=== PATIENT | female | born 1970 | race Caucasian/White ===

== ENCOUNTER 2017-08-23 09:37 | Emergency (ER) | payer MEDICAID ==
[2017-08-23 09:37] VITALS: BMI 23.0
[2017-08-23 09:50] VITALS: BP 120/72; PULSE 91; RESP 20; TEMP 97.8; O2SAT 97
[2017-08-23] MEDS ORDERED: Sodium Chloride 0.9% 1,000 ML IV STA (10:54)
--- NOTE | 2017-08-23 11:29 | ED PDOC ---
HPI:Nausea, Vomiting, Diarrhea Time Seen by Provider: 08/23/17 10:17 Chief Complaint (Nursing): Abdominal Pain Chief Complaint (Provider): Vomiting/diarrhea History Per: Patient History/Exam Limitations: no limitations Onset/Duration Of Symptoms: Days (2) Additional Complaint(s): Pt states she went out to eat last night, at 11 PM started to have nausea, vomiting, diarrhea and crampy abdominal pain. Denies fever, dysuria, hematuria , vaginal bleeding. Past Medical History Reviewed: Nursing Documentation, Vital Signs Vital Signs: Last Vital Signs Temp 97.8 F 08/23/17 09:49 Pulse 91 H 08/23/17 09:49 Resp 20 08/23/17 09:49 BP 120/72 08/23/17 09:49 Pulse Ox 97 08/23/17 09:49 - Medical History PMH: Asthma, Bipolar Disorder, Depression, Hyperthyroidism Denies: Diabetes, Hepatitis, HIV, HTN, Seizures, Sexually Transmitted Disease - Surgical History Surgical History: No Surg Hx - Family History Family History: States: Unknown Family Hx - Social History Current smoker - smoking cessation education provided: Yes - Immunization History Hx Tetanus Toxoid Vaccination: No Hx Influenza Vaccination: No Hx Pneumococcal Vaccination: No - Home Medications Home Medications: Ambulatory Orders Medication Instructions Recorded Gabapentin [Neurontin] 100 mg PO TID 15 Days #45 cap 05/12/17 hydrOXYzine HCl [Atarax] 25 mg PO TID PRN 30 Days #45 tab 05/12/17 traZODone [Desyrel] 50 mg PO HS PRN 15 Days #15 tab 05/12/17 Nitrofurantoin Macrocrystals 100 mg PO BID #13 cap 08/23/17 [Macrobid] - Allergies Allergies/Adverse Reactions: Allergies Allergy/AdvReac Type Severity Reaction Status Date / Time No Known Allergies Allergy Verified 05/09/17 18:21 Review of Systems Constitutional: Negative for: Fever, Chills Cardiovascular: Negative for: Chest Pain, Palpitations Respiratory: Negative for: Cough, Shortness of Breath Gastrointestinal: Positive for: Nausea, Vomiting, Abdominal Pain, Diarrhea. Negative for: Hematochezia, Hematemesis Genitourinary Female: Negative for: Dysuria, Hematuria, Vaginal Discharge, Vaginal Bleeding Musculoskeletal: Negative for: Back Pain Skin: Negative for: Rash, Lesions Neurological: Negative for: Headache Physical Exam - Reviewed Nursing Documentation Reviewed: Yes Vital Signs Reviewed: Yes - Physical Exam Appears: Positive for: Well, No Acute Distress Head Exam: Positive for: ATRAUMATIC, NORMAL INSPECTION Skin: Positive for: Normal Color, Warm, Dry Eye Exam: Positive for: Normal appearance, EOMI, PERRL Cardiovascular/Chest: Positive for: Regular Rate, Rhythm Respiratory: Positive for: Normal Breath Sounds Gastrointestinal/Abdominal: Positive for: Bowel Sounds, Soft, Tenderness (BUQ/ epigastric). Negative for: Distended, Guarding, Rebound Back: Positive for: Normal Inspection. Negative for: L CVA Tenderness, R CVA Tenderness Extremity: Positive for: Normal ROM Neurologic/Psych: Positive for: Alert, Oriented - Laboratory Results Result Diagrams: 08/23/17 11:01 08/23/17 11:01 - ECG O2 Sat by Pulse Oximetry: 97 Medical Decision Making Medical Decision Makin yo female with vomiting, diarrhea and abdominal pain. - labs - abdominal ultrasound - IVF - Zofran ODT Disposition - Clinical Impression Clinical Impression: Gastroenteritis, UTI (urinary tract infection) - Disposition Disposition: Eloped Disposition Time: 13:06 Condition: UNKNOWN Prescriptions: Nitrofurantoin Macrocrystals [Macrobid] 100 mg PO BID #13 cap Forms: [facility] ([place])
[2017-08-23 11:33] LABS: BASO % 0.4 % (0.0-2.0); EOS # 0.1 K/uL (0.0-0.7); EOS % 0.8 % (0.0-4.0); LYMPH # 0.8 K/uL (1.0-4.3); LYMPH % 11.3 % (20.0-40.0); MEAN CELL VOLUME 91.5 fl (81.0-99.0); MEAN CORPUSCULAR HEMOGLOBIN 31.7 pg (27.0-31.0); MEAN CORPUSCULAR HGB CONC 34.7 g/dL (33.0-37.0); MEAN PLATELET VOLUME 8.6 fl (7.2-11.7); MONO # 0.3 K/uL (0.0-0.8); MONO % 3.9 % (0.0-10.0); NEUT # 6.3 K/uL (1.8-7.0); NEUT % 83.6 % (50.0-75.0); RBC 4.73 Mil/uL (3.80-5.20); RED CELL DISTRIBUTION WIDTH 12.2 % (11.5-14.5); WHITE BLOOD COUNT 7.5 K/uL (4.8-10.8)
[2017-08-23 11:41] LABS: ALB/GLOB RATIO 0.9 (1.0-2.1); ALBUMIN 4.4 g/dL (3.5-5.0); ALT/SGPT 38 U/L (9-52); AST/SGOT 36 U/L (14-36); BLOOD UREA NITROGEN 16 mg/dl (7-17); CALCIUM 9.2 mg/dL (8.4-10.2); GFR AFRICAN-AMERICAN > 60; GFR NON-AFRICAN AMERICAN > 60; LIPASE 23 U/L (23-300)
[2017-08-23 11:55] LABS: GRANULAR CAST 1 /lpf (0-1); SQUAMOUS EPITHIAL 34 /hpf (0-5); URINE BACTERIA RARE (<OCC); URINE BILIRUBIN NEGATIVE (NEGATIVE); URINE BLOOD NEGATIVE (NEGATIVE); URINE CLARITY CLOUDY (Clear); URINE COLOR YELLOW (YELLOW); URINE GLUCOSE (UA) NEG (Normal); URINE LEUKOCYTE ESTERASE LARGE Leu/uL (Negative); URINE PROTEIN 30 mg/dL (NEGATIVE)
--- NOTE | 2017-08-23 14:09 | US ---
HISTORY: Epigastric pain COMPARISON: None. TECHNIQUE: Sonographic evaluation of the right upper quadrant of the abdomen. FINDINGS: LIVER: The liver is not appear enlarged and there is normal echogenicity throughout the liver parenchyma. No mass. No intrahepatic bile duct dilatation. GALLBLADDER: Distended but otherwise unremarkable. No gallstones. COMMON BILE DUCT: Measures 6.5 mm, upper limits normal caliber. No stones. PANCREAS: The tail of the pancreas is obscured by overlying bowel gas with remainder unremarkable. RIGHT KIDNEY: Measures 11.2 cm in length. Normal echogenicity. No calculus, mass, or hydronephrosis. AORTA: No aneurysmal dilatation. IVC: Unremarkable. OTHER FINDINGS: None . IMPRESSION: Partial imaging of pancreas. Upper limits normal caliber proximal common bile duct with no choledocholithiasis is evident. Gallbladder is nonfocal with no cholelithiasis identified either.
--- NOTE | 2017-08-24 10:43 | CARD ---
APPROVED REPORT EKG Measurement Heart Clab23LURE HI [id number] <Conclusion> Normal sinus rhythm Nonspecific T wave abnormality Abnormal ECG
== END 2017-08-23 13:10 | disposition left against medical advice (07) ==
LOC: H.ER 09:37
DX: K52.9 Noninfective gastroenteritis and colitis, unspecified (principal); N39.0 Urinary tract infection, site not specified; E05.90 Thyrotoxicosis, unspecified without thyrotoxic crisis or storm; F31.9 Bipolar disorder, unspecified
CPT/HCPCS: 76705; 80053; 81003; 81025; 83690; 85025; 93005; 96374; 99283; J7040